=== PATIENT | female | born 1980 | race African-American/Black ===

== ENCOUNTER 2019-08-13 20:35 | Emergency (ER) | payer OTHER ==
[~2019-08-13] VITALS: Ht 170.2 cm; Wt 86.2 kg
[~2019-08-13 20:35] MED LIST: ACCUNEB SO1.25 MG/1; AMOXICILLIN 50500 MG PO; APAP500 PO; FLEXERIL PO; NORCO 5-325 TA1 EACH PO; NORFLEX100 MG PO; PHENERGAN 25 MG25 M1 PO; TORADOL 10 MG T10 MG PO; ZOFRAN ODT4 MG PO; ZPAK PO
[2019-08-13 22:23] LABS: ABSOLUTE NEUTROPHILS 2.5 thou/uL (1.4-8.2); BASOPHILS 1.2 % (0.0-2.0); EOSINOPHILS 2.4 % (0.0-3.0); HEMATOCRIT 38.3 % (37.0-47.0); HEMOGLOBIN 12.7 gm/dL (12.0-15.0); MCH 30.8 pg (26.0-34.0); MCHC 33.1 g/dL (28.0-37.0); MCV 93.2 fL (80.0-100.0); MONOCYTES 6.6 % (1.0-8.0); PLATELET COUNT 270 thou/uL (150-400); POLYS 40.8 % (36.0-66.0); RBC 4.11 mil/uL (4.20-5.00); RDW 13.2 % (10.5-14.5); WBC 6.1 thou/uL (4.0-11.0)
[2019-08-13 22:29] LABS: ANION GAP 12 mmol/L (7-16); BUN 9 mg/dL (7-18); CALCIUM 9.6 mg/dL (8.5-10.1); CHLORIDE 105 mmol/L (98-107); CO2 24 mmol/L (21-32); CREATININE 0.6 mg/dL (0.6-1.0); GLUCOSE 80 mg/dL (74-106); POTASSIUM 4.4 mmol/L (3.5-5.1); SODIUM 141 mmol/L (136-145)
[2019-08-13 22:38] LABS: ALBUMIN 4.5 g/dL (3.4-5.0); SGOT 25 U/L (15-37); SGPT 29 U/L (30-65); TOTAL BILIRUBIN 0.6 mg/dL (<0.1-1.0); TOTAL PROTEIN 8.3 g/dL (6.4-8.2); TROPONIN-I <0.06 ng/mL (<0.06)
[2019-08-13] MEDS ORDERED: NAPROSYN500 MG PO (22:52)
[2019-08-13] MEDS ORDERED: NORFLEX100 MG PO (22:52)
[2019-08-14 00:05] VITALS: BP 136/74
--- NOTE | 2019-08-14 11:58 | EKG ---
[address] [address] [facility] [place] [address] ELECTROCARDIOGRAM REPORT Name: JUSTIN SPENCER Room #: DEP [facility]#: [id number] Admission: 08/13/19 Attend Phys: Discharge: 08/14/19 Date of : 80 Report #: [id number] THIS REPORT FOR: //name// [facility] ED Test Date: 2019-08-13 Test Time: 20:40:27 Pat Name: JUSTIN SPENCER Department: Room: Gender: F Paint Line Operator: ASHLI : 1980 Requested By: Rojelio Godinez Order Number: [id number] MD: Clinton Freeman Measurements Intervals [place] Rate: 76 P: 48 [place]: 151 QRS: 6 QRSD: 83 T: 10 QT: 402 QTc: 453 Interpretive Statements Sinus rhythm No significant abnormality No previous ECG available for comparison Electronically Signed On 08-14-2019 11:57:51 ARCHEOLOGY PROFESSOR by Clinton Freeman [email or web address] <ELECTRONICALLY SIGNED> By: Clinton Freeman MD, [facility] 08/14/19 [id number] Clinton Freeman MD, FACC /EPI
== END 2019-08-14 00:06 | disposition home or self-care (01) ==
LOC: ER 20:35
PROVIDERS: Emergency Medicine
DX: M43.6 Torticollis (principal); R09.1 Pleurisy; J45.909 Unspecified asthma, uncomplicated; Z98.890 Other specified postprocedural states; Z87.891 Personal history of nicotine dependence

== ENCOUNTER 2021-01-14 10:06 | Emergency (ER) | payer OTHER ==
[~2021-01-14] VITALS: Ht 167.6 cm; Wt 84.8 kg
[~2021-01-14 10:06] MED LIST changes: +NAPROSYN500 MG PO
[2021-01-14 11:16] LABS: URINE BILIRUBIN NEGATIVE (Negative); URINE BLOOD NEGATIVE (Negative); URINE CLARITY CLEAR; URINE COLOR YELLOW; URINE GLUCOSE-RANDOM* NEGATIVE (Negative); URINE KETONES NEGATIVE (Negative); URINE LEUKOCYTES-REFLEX NEGATIVE (Negative); URINE NITRITE-REFLEX NEGATIVE (Negative); URINE PROTEIN (DIPSTICK) NEGATIVE (Negative); URINE SPECIFIC GRAVITY 1.025 (1.005-1.035); URINE UROBILINOGEN 0.2 E.U./dl (0.2-1.0)
[2021-01-14 11:58] LABS: ABSOLUTE NEUTROPHILS 2.4 thou/uL (1.4-8.2); WBC 5.1 thou/uL (4.0-11.0)
[2021-01-14 11:59] LABS: BASOPHILS 0.4 % (0.0-2.0); EOSINOPHILS 2.9 % (0.0-3.0); HEMATOCRIT 35.7 % (37.0-47.0); LYMPHOCYTES 43.1 % (24.0-44.0); MCH 30.5 pg (26.0-34.0); MCHC 33.7 g/dL (28.0-37.0); MCV 90.4 fL (80.0-100.0); MONOCYTES 6.1 % (1.0-8.0); PLATELET COUNT 247 thou/uL (150-400); POLYS 47.5 % (36.0-66.0); RBC 3.94 mil/uL (4.20-5.00); RDW 13.4 % (10.5-14.5)
[2021-01-14 12:09] LABS: ANION GAP 9 mmol/L (7-16); BUN 11 mg/dL (7-18); CALCIUM 8.8 mg/dL (8.5-10.1); CHLORIDE 107 mmol/L (98-107); CO2 27 mmol/L (21-32); CREATININE 0.9 mg/dL (0.6-1.0); GLUCOSE 107 mg/dL (74-106); POTASSIUM 3.7 mmol/L (3.5-5.1); SODIUM 143 mmol/L (136-145)
[2021-01-14 12:13] LABS: ALBUMIN 3.8 g/dL (3.4-5.0); AMYLASE 42 U/L (25-115); DIRECT BILIRUBIN < 0.1 mg/dL (<0.1-0.2); LIPASE 108 U/L (73-393); SGOT 13 U/L (15-37); SGPT 29 U/L (14-59); TOTAL BILIRUBIN 0.3 mg/dL (0.2-1.0); TOTAL PROTEIN 7.6 g/dL (6.4-8.2)
[2021-01-14] MEDS ORDERED: ZOFRAN ODT4 MG PO (12:33)
[2021-01-14] MEDS ORDERED: TYLENOL325 M1 PO (12:33)
[2021-01-14] MEDS ORDERED: NAPROSYN500 MG PO (12:33)
[2021-01-14 13:10] VITALS: BP 107/49
== END 2021-01-14 13:12 | disposition home or self-care (01) ==
LOC: ER 10:06
PROVIDERS: Emergency Medicine
DX: R10.9 Unspecified abdominal pain (principal); J45.909 Unspecified asthma, uncomplicated; E11.9 Type 2 diabetes mellitus without complications; Z87.442 Personal history of urinary calculi; Z98.890 Other specified postprocedural states; Z87.891 Personal history of nicotine dependence; Z90.710 Acquired absence of both cervix and uterus

== ENCOUNTER 2021-02-19 14:22 | Emergency (ER) | payer OTHER ==
[~2021-02-19] VITALS: Ht 167.6 cm; Wt 87.1 kg
[~2021-02-19 14:22] MED LIST changes: +TYLENOL325 M1 PO
[2021-02-19] MEDS ORDERED: BACTRIM DS TAB1 EACH PO (16:16)
[2021-02-19] MEDS ORDERED: NORCO5 PO (16:16)
[2021-02-19 16:20] VITALS: BP 137/82
== END 2021-02-19 16:20 | disposition home or self-care (01) ==
LOC: ER 14:22
DX: L73.2 Hidradenitis suppurativa (principal); N76.4 Abscess of vulva; J45.909 Unspecified asthma, uncomplicated; E11.9 Type 2 diabetes mellitus without complications; F17.210 Nicotine dependence, cigarettes, uncomplicated; Z98.890 Other specified postprocedural states; Z87.442 Personal history of urinary calculi

== ENCOUNTER 2021-03-06 09:11 | Emergency (ER) | payer OTHER ==
[~2021-03-06] VITALS: Ht 167.6 cm; Wt 87.1 kg
[~2021-03-06 09:11] MED LIST changes: +BACTRIM DS TAB1 EACH PO; +NORCO5 PO
[2021-03-06 09:20] VITALS: BP 127/67
== END 2021-03-06 11:03 | disposition home or self-care (01) ==
LOC: ER 09:11
DX: U07.1 COVID-19 (principal); J45.909 Unspecified asthma, uncomplicated; E11.9 Type 2 diabetes mellitus without complications; Z79.899 Other long term (current) drug therapy; Z79.891 Long term (current) use of opiate analgesic; Z79.51 Long term (current) use of inhaled steroids

== ENCOUNTER 2021-09-10 06:28 | Emergency (ER) | payer OTHER ==
[~2021-09-10] VITALS: Ht 167.6 cm; Wt 84.4 kg
[2021-09-10] MEDS ORDERED: NAPROSYN500 MG PO (07:21)
[2021-09-10 07:53] VITALS: BP 114/62
== END 2021-09-10 07:54 | disposition home or self-care (01) ==
LOC: ER 06:28
DX: S89.91XA Unspecified injury of right lower leg, initial encounter (principal); J45.909 Unspecified asthma, uncomplicated; F17.210 Nicotine dependence, cigarettes, uncomplicated; E11.9 Type 2 diabetes mellitus without complications; Z87.442 Personal history of urinary calculi; Z98.890 Other specified postprocedural states; Y04.0XXA Assault by unarmed brawl or fight, initial encounter; Y93.89 Activity, other specified; Y92.89 Other specified places as the place of occurrence of the external cause; Y99.8 Other external cause status